=== PATIENT | female | born 1965 | race African-American/Black ===

== ENCOUNTER 2019-10-04 15:47 | Day surgery (SDC) | payer MEDICARE, MEDICAID ==
[2019-10-04] MEDS ORDERED: ONDANSETRON HCL INJ/PF 4 MG/2 ML SDV ONE (16:25)
[2019-10-04] MEDS ORDERED: DIPHENHYDRAMINE HCL 50 MG/ML VIAL ONE (16:25)
[2019-10-04] MEDS ORDERED: GLUCAGON,HUMAN RECOMB 1 MG INJ ONE (16:27)
[2019-10-04] MEDS ORDERED: FLUMAZENIL INJ 0.5 MG/5 ML VIAL ONE (16:27)
[2019-10-04] MEDS ORDERED: EPINEPHRINE INJ 1 MG/10 ML DISP.SYRIN ONE (16:27)
[2019-10-04] MEDS ORDERED: NALOXONE HCL INJ/PF 0.4 MG/1 ML SDV ONE (16:27)
[2019-10-04] MEDS: MIDAZOLAM 2 MG/2 ML INJ ONE ×2 (17:05→17:24)
[2019-10-04] MEDS: FENTANYL CITRATE INJ/PF 100 MCG/2 ML AMPUL ONE ×2 (17:07→17:23)
--- NOTE | 2019-10-04 17:37 | Operative Report ---
Operative Report DATE OF SURGERY: 10/04/19 Operative Report: Pre-op diagnosis: Anorexia and weight loss Post-op diagnosis: 1. Mild antral gastritis 2. Pancolonic diverticulosis Surgery: Upper endoscopy with biopsy and Colonoscopy Medications: Versed 3mg, Fentanyl 100 mcg IV push Tissue removed: Antral biopsy Procedure: After informed consent obtained from patient, patient's pharynx was sprayed with Hurricane and conscious sedation was achieved. The upper endoscope was then inserted into the esophagus under direct vision and advanced into the stomach and further into the duodenum. Detailed examination of the duodenum, stomach and the esophagus was then performed. A digital rectal examination was performed and this was unremarkable. The colonoscope was inserted into the rectum and advanced to the cecum. The appendiceal orifice and the terminal ileum were both identified. The mucosa was examined into details as the colonoscope was slowly pulled out of the patient. The endoscope was retroflexed in the rectum. Patient tolerated the procedure well. Findings Esophagus: Normal Stomach: Mild erythema in the antrum Duodenum: Normal Cecum: Normal Ascending colon: Few diverticuli Transverse colon: Few diverticuli Descending colon: Multiple diverticuli Sigmoid colon: Multiple diverticuli Rectum: Normal except for internal hemorrhoids Plan: Continue ranitidine and await pathology. Follow-up colonoscopy in 10 years OPERATION: .
[2019-10-04 18:46] VITALS: BP 130/59
== END 2019-10-04 18:35 | disposition home or self-care (01) ==
LOC: END 15:47
PROVIDERS: ATTEND Internal Medicine Gastroenterology
DX: K31.9 Disease of stomach and duodenum, unspecified (principal); K57.30 Diverticulosis of large intestine without perforation or abscess without bleeding; R63.4 Abnormal weight loss; K58.2 Mixed irritable bowel syndrome; R63.0 Anorexia; K80.20 Calculus of gallbladder without cholecystitis without obstruction; Z79.899 Other long term (current) drug therapy; M06.9 Rheumatoid arthritis, unspecified; Q90.9 Down syndrome, unspecified; F03.90 Unspecified dementia, unspecified severity, without behavioral disturbance, psychotic disturbance, mood disturbance, and anxiety; G40.909 Epilepsy, unspecified, not intractable, without status epilepticus
CPT/HCPCS: 43239; 88342 ×2; 88305 ×2; G0121; J2250; J3010; J0171; J1200; J1610; J2310; J2405; J3490

== ENCOUNTER → 2019-12-22 | Outpatient (CLI) | payer MEDICARE, MEDICAID ==
[2019-12-22 12:16] LABS: HEMATOCRIT 40.1 % (36.0-47.0); HEMOGLOBIN 13.2 g/dL (12.0-15.5); LYMPHOCYTES % (AUTO) 15.3 % (13-45); MEAN CORPUSCULAR HEMOGLOBIN 29.9 pg (27.0-33.4); MEAN CORPUSCULAR VOLUME 91 fl (80-97); MONOCYTES % (AUTO) 12.3 % (3-13); PLATELET COUNT 137 10^3/uL (150-450); RED BLOOD COUNT 4.41 10^6/uL (3.72-5.28); RED CELL DISTRIBUTION WIDTH 15.9 % (11.5-14.0); WHITE BLOOD COUNT 5.3 10^3/uL (4.0-10.5)
[2019-12-22 12:17] LABS: ABSOLUTE LYMPHOCYTES (AUTO) 0.8 10^3/uL (0.5-4.7); ABSOLUTE MONOCYTES (AUTO) 0.7 10^3/uL (0.1-1.4); ABSOLUTE NEUT (AUTO) 3.8 10^3/uL (1.7-8.2); BASOPHILS % (AUTO) 0.4 % (0-2); TOTAL CELLS COUNTED % (AUTO) 100 %
[2019-12-22 12:34] LABS: ALBUMIN 3.6 g/dL (3.5-5.0); ANION GAP 8 (5-19); BLOOD UREA NITROGEN 20 mg/dL (7-20); CALCIUM 8.6 mg/dL (8.4-10.2); CARBON DIOXIDE 30 mmol/L (22-30); CHLORIDE 104 mmol/L (98-107); GLUCOSE 99 mg/dL (75-110); POTASSIUM 4.1 mmol/L (3.6-5.0)
[2019-12-22 12:35] LABS: ALKALINE PHOSPHATASE 119 U/L (38-126); ASPARTATE AMINO TRANSFERASE 42 U/L (14-36); BILIRUBIN,DIRECT 0.4 mg/dL (0.0-0.4); BILIRUBIN,TOTAL 0.6 mg/dL (0.2-1.3); PHOSPHORUS 3.9 mg/dL (2.5-4.5); TOTAL PROTEIN 7.9 g/dL (6.3-8.2)
== END ==
LOC: OD 11:18
PROVIDERS: ATTEND Internal Medicine Nephrology
DX: N17.9 Acute kidney failure, unspecified (principal); I95.9 Hypotension, unspecified; N18.3 Chronic kidney disease, stage 3 (moderate)
CPT/HCPCS: 36415; 80053; 82533; 83735; 83970; 84100; 85025

== ENCOUNTER → 2020-01-04 | Outpatient (CLI) | payer MEDICARE, MEDICAID ==
--- NOTE | 2020-01-04 09:40 | RADIOLOGY REPORT (SQ) ---
EXAM DESCRIPTION: HAND RIGHT 3 VIEWS IMAGES COMPLETED DATE/TIME: 01/04/2020 9:21 am REASON FOR STUDY: RT HAND PAIN M79.641 PAIN IN RIGHT HAND COMPARISON: None. EXAM PARAMETERS: NUMBER OF VIEWS: Three views. TECHNIQUE: AP, lateral and oblique radiographic images acquired of the right hand. LIMITATIONS: None. FINDINGS: MINERALIZATION: Normal. BONES: No acute fracture or dislocation. No worrisome bone lesions. JOINTS: Joint space narrowing in the metacarpal phalangeal joints as well as in the distal interphala ngeal joints and proximal interphalangeal joints. SOFT TISSUES: Extensive soft tissue swelling dorsally. OTHER: No other significant finding. IMPRESSION: Extensive soft tissue swelling dorsally. No fractures. Degenerative changes changes as described. TECHNICAL DOCUMENTATION: JOB ID: [id number] 2010 [employer]- All Rights Reserved Reading location - IP/workstation name: [email or web address]
== END ==
LOC: OD 08:57
PROVIDERS: ATTEND Physician Assistant
DX: M79.641 Pain in right hand (principal); M79.89 Other specified soft tissue disorders

== ENCOUNTER → 2020-04-09 | Outpatient (CLI) | payer MEDICARE, MEDICAID ==
--- NOTE | 2020-04-09 15:40 | WOMENS IMAGING REPORT ---
EXAM DESCRIPTION: 3D SCREENING MAMMO BILAT IMAGES COMPLETED DATE/TIME: 04/09/2020 1:40 pm REASON FOR STUDY: Z12.31 ENCOUNTER FOR SCREENING MAMMOGRAM FOR MALIGNANT NEOPLASM OF BREAST Z12.31 ENCNTR SCREEN MAMMOGRAM FOR MALIGNANT NEOPLASM OF NEW COMPARISON: None. EXAM PARAMETERS: Standard craniocaudal and mediolateral oblique views of each breast recorded using digital acquisition and breast tomosynthesis. Read with the assistance of CAD. .[facility] - [employer] Staff Mechanical Engineer Version 9.2 LIMITATIONS: None. FINDINGS: Findings present which are benign by mammographic criteria. No suspicious masses, calcific ations or architectural distortion. Pertinent benign findings: Benign calcifications bilaterally Benign mammographic findings may include one or more of the following: Smooth masses, popcorn/rim/coa rse calcifications, asymmetries, post-procedure changes, and lesions with long-standing stability. IMPRESSION: BENIGN MAMMOGRAPHIC FINDINGS. BIRADS 2 BREAST DENSITY: b. There are scattered areas of fibroglandular density. BIRAD: ASSESSMENT: 2 BENIGN FINDING(S) RECOMMENDATION: ROUTINE SCREENING COMMENT: The patient has been notified of the results by letter per SA requirements. Additional no tification policies are in place for contacting patient with suspicious or incomplete findings. Quality ID #[id number]: The [employer] recommends an annual screening mammogram for women aged 40 years or over. This facility utilizes a reminder system to ensure that all patients receive reminder letters, and/or direct phone calls for appointments. This includes reminders for routine scr eening mammograms, diagnostic mammograms, or other Breast Imaging Interventions when appropriate. Th is patient will be placed in the appropriate reminder system. TECHNICAL DOCUMENTATION: FINDING NUMBER: (1) ASSESSMENT: (1) JOB ID: [id number] 2010 [employer]- All Rights Reserved Reading location - IP/workstation name: [email or web address]
== END ==
LOC: WI 12:59
PROVIDERS: ATTEND Physician Assistant
DX: Z12.31 Encounter for screening mammogram for malignant neoplasm of breast (principal)
CPT/HCPCS: 77063; 77067

== ENCOUNTER 2020-05-09 15:22 | Emergency (ER) | payer MEDICARE, MEDICAID ==
--- NOTE | 2020-05-09 14:46 | RADIOLOGY REPORT (SQ) ---
EXAM DESCRIPTION: HIP LEFT AP/LATERAL IMAGES COMPLETED DATE/TIME: 05/09/2020 2:29 pm REASON FOR STUDY: Fell pain injury COMPARISON: None. NUMBER OF VIEWS: Two views. TECHNIQUE: AP pelvis and additional frog-leg view of the left hip. LIMITATIONS: None. FINDINGS: MINERALIZATION: Normal. LEFT HIP: No fracture or dislocation. No worrisome bone lesions. Mild degenerative changes. RIGHT HIP: No fracture or dislocation. No worrisome bone lesions. Mild degenerative changes. PUBIS AND ISCHIUM: No fracture. PELVIS: No fracture. SACRUM: No fracture or dislocation. No worrisome bone lesions. LOWER LUMBAR SPINE: No fracture or dislocation. No worrisome bone lesions. Spondylotic changes are d emonstrated. . SOFT TISSUES: No findings. OTHER: No other significant finding. IMPRESSION: No evidence of acute osseous injury. TECHNICAL DOCUMENTATION: JOB ID: [id number] 2010 [employer]- All Rights Reserved Reading location - IP/workstation name: [email or web address]
--- NOTE | 2020-05-09 14:47 | RADIOLOGY REPORT (SQ) ---
EXAM DESCRIPTION: KNEE LEFT 4 VIEW IMAGES COMPLETED DATE/TIME: 05/09/2020 2:29 pm REASON FOR STUDY: Fell pain injury COMPARISON: None. NUMBER OF VIEWS: Three views. TECHNIQUE: AP, lateral, and single oblique radiographic images acquired of the left knee. LIMITATIONS: None. FINDINGS: MINERALIZATION: Normal. BONES: The patient is status post total knee arthroplasty without evidence of hardware fracture, shruti hardware lucency or migration. No acute osseous injury is demonstrated. JOINT: No effusion. SOFT TISSUES: No soft tissue swelling. No radio-opaque foreign body. OTHER: No other significant finding. IMPRESSION: Status post total knee arthroplasty without evidence of hardware complication or acute o sseous injury. TECHNICAL DOCUMENTATION: JOB ID: [id number] 2010 [employer]- All Rights Reserved Reading location - IP/workstation name: [email or web address]
--- NOTE | 2020-05-09 15:34 | ER Document Report ---
ED General - General Stated Complaint: FALL/HIP PAIN Time Seen by Provider: 05/09/20 15:30 Primary Care Provider: ROSY DOANHUE PA-C [PHYSICIAN CONTACT LENS MANUFACTURER] - Follow up as needed TRAVEL OUTSIDE OF THE [place] IN LAST 30 DAYS: No - HPI Patient complains to provider of: Right knee pain Notes: 54-year-old female presents from assisted living, has been endorsing right knee pain 8/10 sharp in nature without radiation makes it better or worse. Patient fell on her left side several days ago but this is a new pain right knee - Related Data Allergies/Adverse Reactions: egg Allergy (Intermediate, Verified 10/04/19 16:22) RASH milk Allergy (Intermediate, Verified 10/04/19 16:22) RASH Past Medical History - Social History Smoking Status: Unknown if Ever Smoked Family History: None - Past Medical History Cardiac Medical History: Denies: Hx Coronary Artery Disease, Hx Heart Attack, Hx Hypertension Pulmonary Medical History: Denies: Hx Asthma, Hx Bronchitis, Hx COPD, Hx Pneumonia Neurological Medical History: Reports: Hx Seizures - LAST ONE ABOUT 4 YEARS AGO. Denies: Hx Cerebrovascular Accident Musculoskeletal Medical History: Reports Hx Arthritis - RA, OSTEO Past Surgical History: Denies: Hx Hysterectomy - Immunizations Hx Diphtheria, Pertussis, Tetanus Vaccination: No Review of Systems - Review of Systems Notes: REVIEW OF SYSTEMS: CONSTITUTIONAL: -fevers, -chills EENT: -eye pain, -difficulty swallowing, -nasal congestion CARDIOVASCULAR: -chest pain, -syncope. RESPIRATORY: -cough, -SOB GASTROINTESTINAL: -abdominal pain, -nausea, -vomiting, -diarrhea GENITOURINARY: -dysuria, -hematuria MUSCULOSKELETAL: Knee pain SKIN: -rash or skin lesions. HEMATOLOGIC: -easy bruising or bleeding. LYMPHATIC: -swollen, enlarged glands. NEUROLOGICAL: -altered mental status or loss of consciousness, -headache, - neurologic symptoms PSYCHIATRIC: -anxiety, -depression. ALL OTHER SYSTEMS REVIEWED AND NEGATIVE. Physical Exam - Vital signs Vitals: Pulse Resp BP Pulse Ox 65 18 95/60 L 97 05/09/20 15:52 05/09/20 15:52 05/09/20 15:52 05/09/20 15:52 - Notes Notes: PHYSICAL EXAMINATION: GENERAL: Well-appearing, well-nourished and in no acute distress. HEAD: Atraumatic, normocephalic. EYES: Pupils equal round, sclera anicteric, conjunctiva are normal. ENT: Surgical mask in place. NECK: Normal range of motion, LUNGS: No respiratory Distress, normal chest rise EXTREMITIES: Pain and right leg NEUROLOGICAL: Cranial nerves grossly intact. Normal speech, PSYCH: Normal mood, normal affect. SKIN: Warm, Dry, Patient is a very difficult interview secondary to cognitive defect, staff states she complains of right knee pain but she also had left knee pain with pain. Imaging obtained of left hip and left knee were discharged on incorrect patient that were unremarkable. Will obtain imaging study of right knee Course - Re-evaluation Re-evalutation: 05/09/20 17:18 Patient with Down syndrome presents complaining of pain. Patient has imaging performed of her bilateral knees bilateral femurs bilateral hips no acute process does show osteoarthritis Patient given analgesia in the department feeling markedly improved. Will be discharged home with prescription for oral opioids follow-up PCP return if he worsens or changes. - Vital Signs Vital signs: Temp Pulse Resp BP Pulse Ox 65 18 95/60 L 97 05/09/20 15:52 05/09/20 15:52 05/09/20 15:52 05/09/20 15:52 Discharge - Discharge Clinical Impression: Knee pain Qualifiers: Chronicity: acute Laterality: right Qualified Code(s): M25.561 - Pain in right knee Disposition: HOME, SELF-CARE Prescriptions: Oxycodone HCl [Oxycontin Ir 5 Mg Tablet] 5 mg PO Q4H PRN #15 tablet PRN Reason: For Pain Referrals: ROSY DONAHUE PA-C [PHYSICIAN CONTACT LENS MANUFACTURER] - Follow up as needed
[2020-05-09] MEDS: MORPHINE SULFATE 10 MG/ML INJ IM ONE (15:46)
--- NOTE | 2020-05-09 16:46 | RADIOLOGY REPORT (SQ) ---
EXAM DESCRIPTION: FEMUR RIGHT IMAGES COMPLETED DATE/TIME: 05/09/2020 4:33 pm REASON FOR STUDY: pain COMPARISON: None. NUMBER OF VIEWS: Two views. TECHNIQUE: Two radiographic images acquired of the right femur to include hip and knee in at least o ne projection. LIMITATIONS: None. FINDINGS: MINERALIZATION: Normal. BONES: No acute fracture. Knee prosthesis. No worrisome bone lesions. SOFT TISSUES: No obvious swelling or foreign body. OTHER: No other significant finding. IMPRESSION: NEGATIVE STUDY OF THE RIGHT FEMUR. NO RADIOGRAPHIC EVIDENCE OF ACUTE INJURY. TECHNICAL DOCUMENTATION: JOB ID: [id number] 2010 [employer]- All Rights Reserved Reading location - IP/workstation name: [email or web address]
--- NOTE | 2020-05-09 16:47 | RADIOLOGY REPORT (SQ) ---
EXAM DESCRIPTION: KNEE RIGHT 3 VIEWS IMAGES COMPLETED DATE/TIME: 05/09/2020 4:33 pm REASON FOR STUDY: pain COMPARISON: None. NUMBER OF VIEWS: Three views. TECHNIQUE: AP, lateral, and sunrise patella radiographic images acquired of the right knee. LIMITATIONS: None. FINDINGS: MINERALIZATION: Normal. BONES: No acute fracture or dislocation. Knee prosthesis. No worrisome bone lesions. JOINT: No effusion. SOFT TISSUES: No soft tissue swelling. No radio-opaque foreign body. OTHER: No other significant finding. IMPRESSION: NEGATIVE STUDY OF THE RIGHT KNEE. NO RADIOGRAPHIC EVIDENCE OF ACUTE INJURY. TECHNICAL DOCUMENTATION: JOB ID: [id number] 2010 [employer]- All Rights Reserved Reading location - IP/workstation name: [email or web address]
[2020-05-09] MEDS: LORAZEPAM INJ 2 MG/1 ML VIAL IM ONE (16:52)
[2020-05-09] MEDS: MORPHINE SULFATE 10 MG/ML INJ IV ONE (16:52)
[2020-05-09 17:23] VITALS: BP 145/95
== END 2020-05-09 17:38 | disposition home or self-care (01) ==
LOC: ER 15:22
DX: M25.561 Pain in right knee (principal); W19.XXXA Unspecified fall, initial encounter; Y92.199 Unspecified place in other specified residential institution as the place of occurrence of the external cause
CPT/HCPCS: 99284; 96372; 96374; 73552; 73502; 73562 ×2; J2270; J2060

== ENCOUNTER 2020-05-16 13:33 | Emergency (ER) | payer MEDICARE, MEDICAID ==
[2020-05-16] MEDS ORDERED: FENTANYL CITRATE INJ/PF 100 MCG/2 ML AMPUL IV ONE (15:04)
--- NOTE | 2020-05-16 15:07 | ER Document Report ---
ED Hip Pain/Injury - General Chief Complaint: Back Pain Stated Complaint: HIP PAIN Time Seen by Provider: 05/16/20 14:49 Primary Care Provider: [facility] [Provider Group] - Follow up as needed Information source: Transfer Record, Outside Facility Records Cannot obtain history due to: Mentally challenged Notes: Patient is a resident of an assisted living facility and had a fall on 05/06/2020. Patient was evaluated in the ER on 05/09/2024 right hip pain. Patient has not had any new injuries. Patient with worsening pain today. Patient has been ambulatory with her walker at the assisted living facility. Staff to take care of patient states that her pain has worsened and she is not as active. TRAVEL OUTSIDE OF THE [place] IN LAST 30 DAYS: No - HPI Patient complains to provider of: Hip Occurred: Last week Onset/Duration: Persistent Pain Level: 3 Skin Color: Normal Other injuries: RLE - Related Data Allergies/Adverse Reactions: egg Allergy (Intermediate, Verified 10/04/19 16:22) RASH milk Allergy (Intermediate, Verified 10/04/19 16:22) RASH ibuprofen Allergy (Verified 05/16/20 14:31) Past Medical History - General Information source: Friend, [facility] Records, Outside Facility Records - Social History Smoking Status: Never Smoker Frequency of alcohol use: None Drug Abuse: None Lives with: [facility] Family History: None - Medical History Medical History: Other - Down syndrome - Past Medical History Cardiac Medical History: Denies: Hx Coronary Artery Disease, Hx Heart Attack, Hx Hypertension Pulmonary Medical History: Denies: Hx Asthma, Hx Bronchitis, Hx COPD, Hx Pneumonia Neurological Medical History: Reports: Hx Seizures - LAST ONE ABOUT 4 YEARS AGO. Denies: Hx Cerebrovascular Accident Musculoskeletal Medical History: Reports Hx Arthritis - RA, OSTEO Surgical Hx: Negative Past Surgical History: Denies: Hx Hysterectomy - Immunizations Hx Diphtheria, Pertussis, Tetanus Vaccination: No Review of Systems - Review of Systems -: Yes ROS unobtainable due to patient's medical condition Physical Exam - Vital signs Vitals: Temp Pulse Resp BP Pulse Ox 97.9 F 77 18 104/57 L 100 05/16/20 14:00 05/16/20 14:00 05/16/20 14:00 05/16/20 14:00 05/16/20 14:00 - General General appearance: Appears well, Alert In distress: None - HEENT Head: Normocephalic, Atraumatic Eyes: Normal Nasal: Normal Mouth/Lips: Normal Neck: Normal, Supple. No: Lymphadenopathy - Respiratory Respiratory status: No respiratory distress Chest status: Nontender Breath sounds: Normal. No: Rales, Rhonchi, Stridor, Wheezing Chest palpation: Normal - Cardiovascular Rhythm: Regular Heart sounds: S1 appreciated, S2 appreciated - Back Back: Vertebra tenderness - Lower lumbar tenderness, right SI joint tenderness - Extremities General upper extremity: Normal inspection, Normal ROM General lower extremity: Tender - Right hip tenderness with palpation Hip: Tender - Right hip tenderness, Pain with ROM. No: Deformity, Unable to bear weight - Neurological Neuro grossly intact: Yes - Patient at her baseline per staff - Skin Skin Temperature: Warm Skin Moisture: Dry Skin Color: Normal Course - Re-evaluation Re-evalutation: 05/16/20 16:28 Patient without any occult fracture noted on CT imaging at this time. Staff member at bedside states that patient does appear more comfortable at this time. Will add on lidocaine patches and encourage outpatient follow-up with pain management and her primary doctor. The patient presents with low back pain without signs of spinal cord compression, cauda equina syndrome, infection, aneurysm, or other serious etiology. The patient is neurologically intact. Given the extremely risk of these diagnoses further testing and evaluation for these possibilities does not appear to be indicated at this time. Patient has been instructed to return if the symptoms worsen or change in any way. - Vital Signs Vital signs: Temp Pulse Resp BP Pulse Ox 97.9 F 77 18 109/64 100 05/16/20 16:44 05/16/20 16:44 05/16/20 16:44 05/16/20 16:44 05/16/20 16:44 - Diagnostic Test Radiology reviewed: Reports reviewed Discharge - Discharge Clinical Impression: Right hip pain Low back pain Qualifiers: Chronicity: acute Back pain laterality: right Sciatica presence: unspecified whether sciatica present Qualified Code(s): M54.5 - Low back pain Condition: Stable Disposition: HOME, SELF-CARE Instructions: Arthritis ([facility]), Ice Packs ([facility]), Low Back Pain ([facility]) Additional Instructions: Return immediately for any new or worsening symptoms Followup with your primary care provider, call tomorrow to make a followup appointment Follow-up with pain management Prescriptions: Lidocaine [Lidoderm 5% (700 mg) Transdermal Patch] 1 patch TP DAILY PRN #10 adh..patch PRN Reason: Referrals: [facility] [Provider Group] - Follow up as needed
--- NOTE | 2020-05-16 16:04 | RADIOLOGY REPORT (SQ) ---
EXAM DESCRIPTION: CT LUMBAR SPINE WITHOUT IMAGES COMPLETED DATE/TIME: 05/16/2020 3:35 pm REASON FOR STUDY: R hip pain,low back pain, hx fall COMPARISON: None. TECHNIQUE: Axial images acquired through the lumbar spine without intravenous contrast. Images revie wed with lung, soft tissue and bone windows. Reconstructed coronal and sagittal MPR images reviewed. Images stored on PACS. All CT scanners at this facility use dose modulation, iterative reconstruction, and/or weight based d osing when appropriate to reduce radiation dose to as low as reasonably achievable (ALARA). [facility]: Dose Right [facility]: CareDose [facility]: Dose Right [facility]: Teradose 4D [facility]: StepOut RADIATION DOSE: mGy. LIMITATIONS: Patient motion artifact. FINDINGS: SOFT TISSUES: No soft tissue swelling. No masses. SEGMENTATION: Normal. No transitional anatomy. ALIGNMENT: Relative straightening of the normal lordotic curvature on the basis spondylotic change. VERTEBRAL BODIES: No fractures. No dislocation. No acute findings. DISCS: Loss of intervertebral disc height is seen at all levels, most significantly affecting the L2 through L5 levels which demonstrate near complete loss of disc height with prominent marginal osteoph yte formation. PEDICLES, TRANSVERSE PROCESSES: No fractures. No dislocation. No acute findings. FACETS, POSTERIOR ELEMENTS: No fractures. No dislocation. Facet arthropathy is seen at all levels. HARDWARE: None in the spine. VISUALIZED RIBS: No fractures. OTHER: No other significant finding. IMPRESSION: Examination is somewhat limited by patient motion artifact. Multilevel spondylotic delatorre ges are present. No evidence of acute osseous injury. TECHNICAL DOCUMENTATION: JOB ID: [id number] Quality ID # [id number]: Final reports with documentation of one or more dose reduction techniques (e.g., Au tomated exposure control, adjustment of the mA and/or kV according to patient size, use of iterative reconstruction technique) 2010 [employer]- All Rights Reserved Reading location - IP/workstation name: [email or web address]
--- NOTE | 2020-05-16 16:08 | RADIOLOGY REPORT (SQ) ---
EXAM DESCRIPTION: CT RT LOWER EXTREMITY WITHOUT IMAGES COMPLETED DATE/TIME: 05/16/2020 3:35 pm REASON FOR STUDY: R hip pain, hx fall COMPARISON: None. TECHNIQUE: CT scan of the right hip performed without intravenous or oral contrast. Images reviewed with soft tissue and bone windows. Reconstructed coronal and sagittal MPR images reviewed. All swapna ges stored on PACS. All CT scanners at this facility use dose modulation, iterative reconstruction, and/or weight based d osing when appropriate to reduce radiation dose to as low as reasonably achievable (ALARA). [facility]: Dose Right [facility]: CareDose [facility]: Dose Right [facility]: Teradose 4D [facility]: Genesant RADIATION DOSE: CT Rad equipment meets quality standard of care and radiation dose reduction techniq ues were employed. CTDIvol: 16.2 mGy. DLP: 520 mGy-cm. mGy. LIMITATIONS: None. FINDINGS: PELVIC BONES: No acute fracture. No worrisome bone lesions. VISUALIZED SPINE: No acute findings. Spondylotic changes are demonstrated. Incidental note is made incomplete right chanelle sacralization of the L5 element with a right-sided Bertolotti segment. SYMPTOMATIC HIP: No acute fracture or dislocation. No worrisome bone lesions. Degenerative changes a re present. OPPOSITE HIP: No acute fracture or dislocation. No worrisome bone lesions. Degenerative changes are present. PELVIC SOFT TISSUES: No significant findings. EXTRAPELVIC SOFT TISSUES: No significant findings. OTHER: No other significant finding. IMPRESSION: No evidence of acute osseous injury. Degenerative changes are seen of the hips and spin e. TECHNICAL DOCUMENTATION: JOB ID: [id number] Quality ID # [id number]: Final reports with documentation of one or more dose reduction techniques (e.g., Au tomated exposure control, adjustment of the mA and/or kV according to patient size, use of iterative reconstruction technique) 2010 [employer]- All Rights Reserved Reading location - IP/workstation name: [email or web address]
[2020-05-16] MEDS ORDERED: LIDOCAINE 5% (700 MG) TRANSDERMAL ADH..PATCH TP ONE (16:12)
[2020-05-16 16:46] VITALS: BP 109/64
== END 2020-05-16 16:44 | disposition home or self-care (01) ==
LOC: ER 13:33
DX: M54.5 Low back pain (principal); M25.551 Pain in right hip; M54.9 Dorsalgia, unspecified; Z88.8 Allergy status to other drugs, medicaments and biological substances
CPT/HCPCS: 99285; 96374; 72131; 73700; A9270

== ENCOUNTER 2020-06-20 12:07 | Emergency (ER) | payer MEDICARE, MEDICAID ==
--- NOTE | 2020-06-20 14:47 | ER Document Report ---
ED General - General Chief Complaint: Seizure Stated Complaint: SEIZURE Time Seen by Provider: 06/20/20 14:28 Primary Care Provider: ROSY DONAHUE PA-C [Primary Care Provider] - Follow up as needed Mode of Arrival: Stretcher Information source: Relative - Kenna sister, Outside Facility Records Cannot obtain history due to: Mentally challenged Notes: Patient is a 54-year-old -[place] female who lives in a home for individuals with special needs. She has Down syndrome, seizure disorder, rheumatoid arthritis. Her sister reports that she fell about 4 weeks ago and has had a gradual decline since then. She reports that the patient has had very poor appetite over the past couple days. Her speech is garbled. She is not able to walk with her walker. It is reported that she had 2 brief seizures at the facility today. TRAVEL OUTSIDE OF THE [place] IN LAST 30 DAYS: No - Related Data Allergies/Adverse Reactions: egg Allergy (Intermediate, Verified 10/04/19 16:22) RASH milk Allergy (Intermediate, Verified 10/04/19 16:22) RASH ibuprofen Allergy (Verified 05/16/20 14:31) Past Medical History - General Information source: Relative - Sister, Outside Facility Records Cannot obtain history due to: Mentally challenged - Social History Smoking Status: Never Smoker Family History: None - Past Medical History Cardiac Medical History: Denies: Hx Coronary Artery Disease, Hx Heart Attack, Hx Hypertension Pulmonary Medical History: Denies: Hx Asthma, Hx Bronchitis, Hx COPD, Hx Pneumonia Neurological Medical History: Reports: Hx Seizures - LAST ONE ABOUT 4 YEARS AGO. Denies: Hx Cerebrovascular Accident Musculoskeletal Medical History: Reports Hx Arthritis - RA, OSTEO Past Surgical History: Denies: Hx Hysterectomy - Immunizations Hx Diphtheria, Pertussis, Tetanus Vaccination: No Review of Systems - Review of Systems Notes: Constitutional: No fevers. No chills. Positive general weakness EENT: No eye redness. No eye pain. No ear pain. No sore throat. Cardiovascular: No chest pain. No palpitations. Respiratory: No cough. No shortness of breath. No respiratory distress. Gastrointestinal: No abdominal pain. No nausea, vomiting, or diarrhea. Genitourinary: Atraumatic. No lesions. No pain. No discharge. Musculoskeletal: Atraumatic. No swelling. No deformities. Skin: No rash or lesions. Lymphatic: No swollen lymph nodes. Neurologic: No headache. No syncope. Positive garbled speech Physical Exam - Vital signs Vitals: Pulse Ox 94 06/20/20 15:02 - Notes Notes: General: Ill-appearing. Cardiac: Well-perfused. Regular rate and rhythm. No murmurs, rubs, or gallops. Pulmonary: No respiratory distress. No cyanosis. Bilateral lung danielle are clear to auscultation. Abdominal: Non-distended. Non-rigid. Bowels sounds are present in all four quadrants. No guarding or rebound. HEENT: Head is atraumatic. Conjunctivae not reddened. No tearing. PERRL. EOMI. Orbits atraumatic. No periorbital swelling or erythema. Oropharynx is without erythema, swelling, or exudates. Neck: Supple. No adenopathy. No meningismus. Dermatologic: Warm with good turgor. No rash. Atraumatic. Chest: Atraumatic. No chest wall tenderness to palpation. Musculoskeletal: Moves all extremities well. No range of motion deficits. no m uscular or joint tenderness. No paraspinal muscle tenderness. no midline spinal tenderness or step-off. Genitourinary: Examination deferred Neurologic: Responsive to basic yes/no questions. Psychiatric: Normal mood. Course - Re-evaluation Re-evalutation: 06/20/20 18:06 Patient has evidence of Dilantin toxicity. Also has possible pneumonia. COVID test sent. Urinalysis pending. CT shows cannot rule out small left basal g anglia hemorrhage. Discussed case with Dr. Pineda. Will transfer to a facility with neurosurgical capability. the neurosurgeon on-call at [facility] accepts the patient in transfer. Bed assignment and transport pending 06/20/20 18:18 - Vital Signs Vital signs: Temp Pulse Resp BP Pulse Ox 20 117/44 L 94 06/20/20 16:01 06/20/20 16:01 06/20/20 16:01 - Laboratory Result Diagrams: 06/20/20 14:45 06/20/20 14:45 Laboratory results interpreted by me: 06/20/20 06/20/20 06/20/20 14:45 14:45 15:39 RDW 15.7 H Lymph % (Auto) 6.6 L Mcduffie % (Auto) 14.0 H Absolute Lymphs (auto) 0.4 L Seg Neutrophils % 79.2 H Glucose 129 H Calcium 7.7 L Alkaline Phosphatase 194 H Albumin 3.1 L Phenytoin 41.3 H* - Diagnostic Test Radiology reviewed: Reports reviewed - EKG Interpretation by Me EKG shows normal: Sinus rhythm Rate: Normal Rhythm: NSR Discharge - Discharge Clinical Impression: Generalized weakness, Intracranial hemorrhage Altered mental status Qualifiers: Altered mental status type: unspecified Qualified Code(s): R41.82 - Altered mental status, unspecified Phenytoin toxicity Qualifiers: Encounter type: initial encounter Injury intent: accidental or unintentional Qualified Code(s): T42.0X1A - Poisoning by hydantoin derivatives, accidental (unintentional), initial encounter Pneumonia Qualifiers: Pneumonia type: due to unspecified organism Laterality: unspecified laterality Lung location: unspecified part of lung Qualified Code(s): J18.9 - Pneumonia, unspecified organism Condition: Fair Disposition: [facility] Referrals: ROSY DONAHUE PA-C [Primary Care Provider] - Follow up as needed
[2020-06-20 15:07] LABS: ABSOLUTE LYMPHOCYTES (AUTO) 0.4 10^3/uL (0.5-4.7); ABSOLUTE MONOCYTES (AUTO) 0.9 10^3/uL (0.1-1.4); ABSOLUTE NEUT (AUTO) 4.8 10^3/uL (1.7-8.2); BASOPHILS % (AUTO) 0.2 % (0-2); HEMATOCRIT 36.3 % (36.0-47.0); HEMOGLOBIN 12.1 g/dL (12.0-15.5); LYMPHOCYTES % (AUTO) 6.6 % (13-45); MEAN CORPUSCULAR HEMOGLOBIN 30.2 pg (27.0-33.4); MEAN CORPUSCULAR HGB CONC 33.5 g/dL (32.0-36.0); MEAN CORPUSCULAR VOLUME 90 fl (80-97); PLATELET COUNT 158 10^3/uL (150-450); RED BLOOD COUNT 4.02 10^6/uL (3.72-5.28); RED CELL DISTRIBUTION WIDTH 15.7 % (11.5-14.0); SEGMENTED NEUTROPHILS % (AUTO) 79.2 % (42-78); TOTAL CELLS COUNTED % (AUTO) 100 %; WHITE BLOOD COUNT 6.1 10^3/uL (4.0-10.5)
[2020-06-20 15:20] LABS: ALBUMIN 3.1 g/dL (3.5-5.0); ALKALINE PHOSPHATASE 194 U/L (38-126); ANION GAP 8 (5-19); ASPARTATE AMINO TRANSFERASE 28 U/L (14-36); BILIRUBIN,DIRECT 0.4 mg/dL (0.0-0.4); BILIRUBIN,TOTAL 0.5 mg/dL (0.2-1.3); BLOOD UREA NITROGEN 15 mg/dL (7-20); CALCIUM 7.7 mg/dL (8.4-10.2); CARBON DIOXIDE 28 mmol/L (22-30); CHLORIDE 103 mmol/L (98-107); GLUCOSE 129 mg/dL (75-110); TOTAL PROTEIN 6.5 g/dL (6.3-8.2)
--- NOTE | 2020-06-20 15:43 | RADIOLOGY REPORT (SQ) ---
EXAM DESCRIPTION: CHEST SINGLE VIEW IMAGES COMPLETED DATE/TIME: 06/20/2020 3:32 pm REASON FOR STUDY: weak, altered COMPARISON: None. EXAM PARAMETERS: NUMBER OF VIEWS: One view. TECHNIQUE: Single frontal radiographic view of the chest acquired. RADIATION DOSE: NA LIMITATIONS: None. FINDINGS: LUNGS AND PLEURA: Alveolar airspace disease in the right base and left upper lobe. This c ould represent asymmetric edema or pneumonia. No pneumothorax. MEDIASTINUM AND HILAR STRUCTURES: No masses. Contour normal. HEART AND VASCULAR STRUCTURES: Allowing for technique heart size is normal. There is mild central va scular prominence. BONES: No acute findings. HARDWARE: None in the chest. OTHER: No other significant finding. IMPRESSION: Alveolar infiltrates in the right base and left upper lobe. Possibly pneumonia or asymm etric edema. Changes in the left upper lobe could be in part due to overlying structures. TECHNICAL DOCUMENTATION: JOB ID: [id number] 2010 [employer]- All Rights Reserved Reading location - IP/workstation name: [email or web address]
[2020-06-20] MEDS ORDERED: CEFTRIAXONE 1 GM/D5W RTU 1 GM/50 ML RTUPB IV ONE (16:04)
--- NOTE | 2020-06-20 17:15 | RADIOLOGY REPORT (SQ) ---
EXAM DESCRIPTION: CT HEAD WITHOUT IMAGES COMPLETED DATE/TIME: 06/20/2020 4:54 pm REASON FOR STUDY: altered mental status COMPARISON: None. TECHNIQUE: Axial images acquired through the brain without intravenous contrast. Images reviewed wi th bone, brain and subdural windows. Additional sagittal and coronal reconstructions were generated. Images stored on PACS. All CT scanners at this facility use dose modulation, iterative reconstruction, and/or weight based d osing when appropriate to reduce radiation dose to as low as reasonably achievable (ALARA). [facility]: Dose Right [facility]: CareDose [facility]: Dose Right [facility]: Teradose 4D [facility]: Smart GreenLight RADIATION DOSE: CT Rad equipment meets quality standard of care and radiation dose reduction techniq ues were employed. CTDIvol: 24.8 mGy. DLP: 499 mGy-cm. mGy. LIMITATIONS: None. FINDINGS: VENTRICLES: Prominent. CEREBRUM: No masses. Cannot exclude a small focal hemorrhage in the basal ganglia on the left. See image 24. Basal ganglia calcifications are seen bilaterally on image 23 in 24. No midline shift. N o evidence for acute infarction. Normal morel/white matter differentiation. No areas of low density in the white matter. CEREBELLUM: No masses. No hemorrhage. No alteration of density. No evidence for acute infarction. EXTRAAXIAL SPACES: No fluid collections. No masses. ORBITS AND GLOBE: No intra- or extraconal masses. Normal contour of globe without masses. CALVARIUM: No fracture. PARANASAL SINUSES: No fluid or mucosal thickening. SOFT TISSUES: No mass or hematoma. OTHER: No other significant finding. IMPRESSION: Basal ganglia calcifications. Cannot entirely exclude a small focal hemorrhage on the l eft on image 24 as described. EVIDENCE OF ACUTE STROKE: Possibly COMMENT: Pertinent findings on the imaging study reported as a CRITICAL RESULT to GEOVANNY ADAMSON PA-C at17:08 on 06/20/2020. Category of Critical Result: A possible basal ganglia hemorrhage. Quality ID # [id number]: Final reports with documentation of one or more dose reduction techniques (e.g., Au tomated exposure control, adjustment of the mA and/or kV according to patient size, use of iterative reconstruction technique) TECHNICAL DOCUMENTATION: JOB ID: [id number] 2010 [employer]- All Rights Reserved Reading location - IP/workstation name: [email or web address]
[2020-06-20] MEDS ORDERED: NORMAL SALINE 500 ML IV ONE (18:05)
[2020-06-20 19:05] LABS: APPEARANCE,URINE SLIGHTLY-CLOUDY; BILIRUBIN,URINE NEGATIVE (NEGATIVE); COLOR,URINE YELLOW; GLUCOSE, URINE NEGATIVE (NEGATIVE); KETONES,URINE NEGATIVE (NEGATIVE); PROTEIN,URINE NEGATIVE (NEGATIVE); URINE SPECIFIC GRAVITY 1.014
[2020-06-20 22:20] VITALS: BP 101/81
== END 2020-06-20 22:15 | disposition short-term general hospital (02) ==
LOC: ER 12:07
DX: S06.309A Unspecified focal traumatic brain injury with loss of consciousness of unspecified duration, initial encounter (principal); W19.XXXA Unspecified fall, initial encounter; T42.0X1A Poisoning by hydantoin derivatives, accidental (unintentional), initial encounter; R41.82 Altered mental status, unspecified; J18.9 Pneumonia, unspecified organism; Q90.9 Down syndrome, unspecified; G40.909 Epilepsy, unspecified, not intractable, without status epilepticus; M06.9 Rheumatoid arthritis, unspecified; R63.0 Anorexia; Z91.011 Allergy to milk products; Z91.012 Allergy to eggs; Z88.8 Allergy status to other drugs, medicaments and biological substances; R53.1 Weakness
CPT/HCPCS: 99285; 96361; 96365; 36415; 87040; 80185; 85025; 80053; 81001; 84484; 71045; 70450; J7040; J0696